=== PATIENT | female | born 1985 | race Two or more races ===

== ENCOUNTER 2018-01-16 09:25 | Outpatient (CLI) ==
[2013-12-22 17:33] VITALS: BMI 20.9
--- NOTE | 2018-01-16 11:35 | US ---
EXAM: Ultrasound abdomen limited. HISTORY: Right upper quadrant pain. COMPARISON: None available. TECHNIQUE: Abdominal, real time with image documentation: limited (eg, single organ, quadrant, foll ow-up) FINDINGS: The liver demonstrates homogeneous echotexture without intrahepatic biliary dilatation. P ortal venous flow is normal in direction. The gallbladder contains some low level intraluminal echoe s but is without shadowing stones, wall thickening or pericholecystic fluid. Common duct measures ap proximately 0.3 cm. Visualized portions of the pancreas are unremarkable. IMPRESSION: 1. Gallbladder sludge. 2. No acute sonographic abnormality of the liver, gallbladder or biliary system.
== END 2018-01-16 09:26 | disposition home or self-care (01) ==
LOC: RAD 09:25
PROVIDERS: ATTEND Physician Assistant
DX: R10.11 Right upper quadrant pain (principal)

== ENCOUNTER 2018-01-26 10:01 | Outpatient (CLI) ==
[2013-12-22 17:33] VITALS: BMI 20.9
== END 2018-01-26 10:02 | disposition home or self-care (01) ==
LOC: LAB 10:01
PROVIDERS: ATTEND Physician Assistant
DX: R19.7 Diarrhea, unspecified (principal)
CPT/HCPCS: 87015; 87045; 87493; 87899

== ENCOUNTER 2018-01-28 09:47 | Outpatient (CLI) ==
[2013-12-22 17:33] VITALS: BMI 20.9
== END 2018-01-28 09:48 | disposition home or self-care (01) ==
LOC: LAB 09:47
PROVIDERS: ATTEND Physician Assistant
DX: R19.7 Diarrhea, unspecified (principal)